=== PATIENT | female | born 1950 | race Caucasian/White ===

== ENCOUNTER → 2025-03-18 13:29 | Outpatient (REF) | payer MEDICARE, SELFPAY | LOC: RAD 13:29 | PROVIDERS: ATTENDING PHYSICIAN Internal Medicine Critical Care Medicine; FAMILY PHYSICIAN Family Medicine | DX: Z87.891 Personal history of nicotine dependence (principal); R93.89 Abnormal findings on diagnostic imaging of other specified body structures | CPT/HCPCS: 71271 ==